=== PATIENT | female | born 1960 | race Caucasian/White ===

== ENCOUNTER → 2016-08-02 | Outpatient (CLI) | payer BC, OTHER | END | disposition home or self-care (01) | LOC: RAD.S 08:28 | DX: R10.84 Generalized abdominal pain (principal); R14.0 Abdominal distension (gaseous); K76.0 Fatty (change of) liver, not elsewhere classified; D25.9 Leiomyoma of uterus, unspecified; R93.2 Abnormal findings on diagnostic imaging of liver and biliary tract; K82.8 Other specified diseases of gallbladder ==

== ENCOUNTER → 2016-08-15 | Outpatient (CLI) | payer BC | END | disposition home or self-care (01) | LOC: RAD.S 07:45 | DX: R10.9 Unspecified abdominal pain (principal); R14.0 Abdominal distension (gaseous) ==